=== PATIENT | female | born 1995 | race Caucasian/White ===

== ENCOUNTER 2021-06-14 16:56 | Outpatient (REF) | payer SELFPAY ==
[2021-06-16 15:45] LABS: COVID-19 RT-PCR UVMMC Result Negative (Negative)
== END 2021-06-14 16:57 | disposition home or self-care (01) ==
LOC: LBN 16:56
PROVIDERS: Visit Provider Physician Assistant Medical
DX: J02.9 Acute pharyngitis, unspecified (principal); Z20.822 Contact with and (suspected) exposure to COVID-19
CPT/HCPCS: U0003; 87070

== ENCOUNTER 2022-01-18 16:47 | Outpatient (REF) | payer SELFPAY | END 2022-01-18 16:48 | disposition home or self-care (01) | LOC: LBN 16:47 | PROVIDERS: Visit Provider Nurse Practitioner Family | DX: N39.0 Urinary tract infection, site not specified (principal) | CPT/HCPCS: 87086 ==

== ENCOUNTER 2022-12-07 17:08 | Outpatient (REF) | payer SELFPAY ==
[2022-12-07 22:19] LABS: Bacteria Few HPF (Negative); C & S Indicated? C&S Done As Ordered; Casts Negative LPF (Negative); Crystals Negative HPF (Negative); Epithelial Cells Few HPF (Negative); Mucus Negative (Negative); RBC 0-2 HPF (0-2); WBC 20-50 HPF (0-5)
== END 2022-12-07 17:09 | disposition home or self-care (01) ==
LOC: LBN 17:08
PROVIDERS: Visit Provider Physician Assistant Medical
DX: R30.0 Dysuria (principal)
CPT/HCPCS: 81015; 87086

== ENCOUNTER 2022-12-10 17:34 | Outpatient (REF) | payer SELFPAY ==
[2022-12-12 12:52] LABS: Chlamydia Result Negative (Negative); GC Result Negative (Negative)
== END 2022-12-10 17:35 | disposition home or self-care (01) ==
LOC: LBN 17:34
PROVIDERS: Visit Provider Nurse Practitioner Family
DX: Z11.3 Encounter for screening for infections with a predominantly sexual mode of transmission (principal)
CPT/HCPCS: 87491; 87591

== ENCOUNTER 2023-02-01 19:33 | Outpatient (REF) | payer BC, SELFPAY ==
[2023-02-01 20:55] LABS: Source Nasal/Nares
[2023-02-01 21:45] LABS: COVID-19 PCR Negative (Negative)
== END 2023-02-01 19:34 | disposition home or self-care (01) ==
LOC: LBN 19:33
PROVIDERS: Visit Provider Physician Assistant Medical
DX: J02.9 Acute pharyngitis, unspecified (principal); Z20.822 Contact with and (suspected) exposure to COVID-19
CPT/HCPCS: 87635; 87070

== ENCOUNTER 2024-03-14 00:16 | Emergency (ER) | payer BC, SELFPAY ==
[2024-03-14 00:27] VITALS: BP 178/107; PULSE 117; RESP 16; TEMP 36.7; O2SAT 98
--- NOTE | 2024-03-14 00:30 | DI.CT_ITS ---
Exam(s) CT ABDOMEN PELVIS WO EXAM: CT ABDOMEN PELVIS WO CLINICAL HISTORY: hx of stones, now UTI, r/o stone. TECHNIQUE: Imaging Protocol: Axial computed tomography images with coronal and sagittal reformatted images were created and reviewed. Oral: / no COMPARISON: No exams were available for comparison FINDINGS: Lung Bases: No acute findings. Liver: Normal density. No suspicious mass. Gallbladder and biliary tract: No radiodense calculus or biliary dilation. Pancreas: Normal density. No abnormal calcifications or inflammatory process. Spleen: Normal. Kidneys: Normal size, contour and axis. No radiodense stones. No obstructive uropathy. No suspicious masses seen. Adrenal glands: No masses seen. Lymph nodes: Within normal limits. Vasculature: Abdominal aorta non-dilated. Soft tissues: Unremarkable. Bladder: No wall thickening. No mass or calculi. Bowel: No obstruction or bowel wall thickening. Peritoneal cavity: Trace amount of physiologic fluid in cul-de-sac. No focal collection. No mesente colleen inflammatory response. Reproductive organs: Unremarkable. Bones: Bilateral L4 pars defects and slight spondylolisthesis. Severe degenerative disc changes at L 4-5. Remainder of spine unremarkable. IMPRESSION: No acute abnormality in the abdomen or pelvis. No evidence of urinary tract calculi or hydronephrosis. RADIATION DOSE DELIVERED: Total DLP DATA REPOSITORY: All CT scans at this facility are submitted to the National Radiology Data Registry (NRDR) Dose Index Registry (DIR) with the [employer] (ACR). RADIATION OPTIMIZATION: All CT scans at this facility use at least one of these dose optimization te chniques: automated exposure control; mA and/or kV adjustment per patient size (includes targeted exa ms where dose is matched to clinical indication); or iterative reconstruction.
[2024-03-14 00:31] VITALS: BP 178/107; PULSE 117; RESP 16; TEMP 36.7; O2SAT 98
--- NOTE | 2024-03-14 00:34 | ED.GENADUL_ITS ---
Discharge Plan Disposition Patient Disposition: Home Condition: Good Discharge Details Clinical Impression: UTI (urinary tract infection) Primary Care Provider: Vanita Martinez ED Provider: Glen Max Home Meds and New Rx's Prescriptions: New cephalexin 500 mg capsule 500 mg PO QID 7 Days Qty: 28 0RF Discharge Instructions Instructions: Urinary Tract Infection, Adult ED Additional Instructions: At this time you have evidence of urinary tract infection. Thankfully there is no evidence of a kidney stone or other significant abnormality. You have been given a dose of antibiotics here, and a prescription to your pharmacy on file. Please take this as prescribed and directed. Please drink plenty of fluids and stay well-hydrated. If you notice any worsening of your symptoms, or any new symptoms such as vomiting, diarrhea, fever, chills, shortness of breath, chest pain, numbness, weakness, or fainting , please return immediately to the emergency department for reevaluation. Please follow up with your primary care provider as soon as possible for reassessment and reevaluation. As always, it was a pleasure participating in your medical care today. Referrals: Vanita Martinez [Primary Care Provider] - HPI General Date/Time Provider Initiated Documentation: 03/14/24 00:27 . HPI Narrative: 28-year-old female with a past medical history of sinus tachycardia, previous kidney stones, presents today for evaluation of bilateral flank pain, urinary burning, frequency, and malodorous smell from the urine. Patient states that it started this morning. She did have some old amoxicillin and took 500 mg today right before noon. She denies any vomiting or diarrhea. She describes the pain in her flanks as achy. She admits to seeing blood in her urine, but states that normally she does not have this amount with UTIs. No other complaints at this time. No other modifying factors. Related Data Home Medications ?Medication ?Instructions ?Recorded ?Confirmed cephalexin 500 mg capsule 500 mg PO QID 7 days #28 caps 03/14/24 Previous Rx's ?Medication ?Instructions ?Recorded cephalexin 500 mg capsule 500 mg PO QID 7 days #28 caps 03/14/24 Allergies Allergy/AdvReac Type Severity Reaction Status Date / Time doxycycline Allergy Severe Anaphylaxis Verified 03/14/24 00:34 General Stated Complaint: Urinary LUKAS: 3 Review of Systems All systems reviewed & are unremarkable except as noted in HPI and below Exam Narrative Exam Narrative: 1.Const: Well-nourished, Well-developed, appearing stated age 2.Eyes: PERRL, no conjunctival injection, and symmetrical lids. 3.ENT: Atraumatic external nose and ears. Moist MM. Neck: Symmetric, trachea midline, No thyromegaly. 4.CVS: +S1/S2, No murmurs or gallops. Peripheral pulses 2+ and equal in all extremities. Brisk capillary refill in all extremities. 5.RESP: Unlabored respiratory effort. Clear to auscultation bilaterally. No wheezes rales or rhonchi 6.GI: Soft, nondistended, mild CVA tenderness bilaterally on percussion. No guarding or rebound. No pain at McBurney's point, negative Ag sign. Mild suprapubic achiness. 7.MSK: Normocephalic/Atraumatic, Extremities w/o deformity or ttp No cyanosis or clubbing, Normal movement of all extremities 8.Skin: Warm, Dry. No rashes or lesions. 9.Neuro: wreath machine tender II-XII grossly intact. Sensation grossly intact, no focal neurologic deficits. 10.Psych: (AAO) x3. Appropriate mood and affect Course Vital Signs Vital signs: Vital Signs Temperature 36.7 C 03/14/24 00:27 Pulse 117 H 03/14/24 00:27 Respiratory Rate 16 03/14/24 00:27 Blood Pressure 178/107 H 03/14/24 00:27 Pulse Oximetry 98 03/14/24 00:27 Temperature 36.7 C 03/14/24 00:31 Pulse 117 H 03/14/24 00:31 Respiratory Rate 16 03/14/24 00:31 Respiratory Effort Normal, Non-Labored 03/14/24 00:31 Blood Pressure 178/107 H 03/14/24 00:31 Blood Pressure Position Sitting 03/14/24 00:31 Pulse Oximetry 98 03/14/24 00:31 Oxygen Delivery Method Room Air 03/14/24 00:31 Oxygen Flow Rate 0 03/14/24 00:27 Pain Level 7 03/14/24 00:31 Medical Decision Making 28-year-old female with a past medical history of sinus tachycardia, previous kidney stones, presents today for evaluation of bilateral flank pain, urinary burning, frequency, and malodorous smell from the urine. Patient states that it started this morning. She did have some old amoxicillin and took 500 mg today right before noon. She denies any vomiting or diarrhea. She describes the pain in her flanks as achy. She admits to seeing blood in her urine, but states that normally she does not have this amount with UTIs. No other complaints at this time. No other modifying factors. Exam demonstrates mild bilateral CVA tenderness. No significant guarding or rebound though. Concern for urolithiasis and potential UTI as well. Will get CT scan to rule out stone, we we will rehydrate, give Toradol for pain control, monitor closely and reassess. 4:[address] scan shows no evidence of urolithiasis, laboratory workup shows mildly elevated white count of 13.6, normal lactate, normal electrolytes and normal renal function. Urinalysis shows large blood leuk esterase and RBCs. With the patient's symptomatology, and urinalysis I do suspect urinary tract infection without evidence of urolithiasis. We will give 2 g of ceftriaxone here and a prescription for Keflex for home use. Patient's pain is improved with NSAID therapy. She remained stable and appropriate for discharge at this time. No evidence of hypotension or shock. Patient will be discharged home. Diagnosis urinary tract infection. I have extensively reviewed the treatment plan and discharge instructions with the patient. I have addressed all patient concerns at this time. The patient was made aware of what symptoms to monitor for that would warrant a return to the emergency department. Discussed the plan with the patient, they demonstrate verbal understanding and agreement with our assessment and plan at this time. The documentation in this chart was dictated using [employer] dictation software. Please excuse any dictation errors. FINDINGS: Liver: Normal. No mass. Gallbladder and biliary ducts: Normal. No calcified stones. No ductal dilation. Pancreas: Normal. No ductal dilation. Spleen: Normal. No splenomegaly. Adrenal glands: Normal. No mass. Kidneys and ureters: Normal. No hydronephrosis. Stomach and bowel: No evidence of bowel obstruction. No mucosal thickening. Appendix: Normal appendix. Intraperitoneal space: Trace fluid in the cul-de-sac. No free air. Vasculature: Unremarkable. No abdominal aortic aneurysm. Lymph nodes: Unremarkable. No enlarged lymph nodes. Urinary bladder: Unremarkable as visualized. Reproductive: Unremarkable as visualized. Bones/joints: Pars defects with grade 1 spondylolisthesis and degenerative disc disease at L4-L5. No acute fracture. Soft tissues: Unremarkable. IMPRESSION: No acute findings. Thank you for allowing us to participate in the care of your patient. Dictated and Authenticated by: Rufus Cain MD 03/14/2024 3:47 AM Eastern Time ([place] & [place]) Quality:SDOH Health Related Social Needs: No Data to Display PFSH All Active Problems (Updated 03/14/24 @ 03:58 by Glen Max DO) UTI (urinary tract infection) (Acute) Social History Smoking/Tobacco Use Status: Current every day Smoking risk assessment performed?: Yes Alcohol Intake: current Alcohol Intake frequency: a few times a week Alcohol type: beer Drug use: Occasionally Substance use type: marijuana Housing: apartment Do you feel safe at home: Yes Do you feel safe in your relationship?: Yes Additional Social history: unable to assess privately
[2024-03-14] MEDS: Ketorolac 15 MG/ML VIAL IVP (00:49)
[2024-03-14] MEDS: Lactated Ringers 1,000 ML 1000 ML IV (00:49)
[2024-03-14 00:50] LABS: Abs Immature Grans 0.03 10^3/uL (0.0-0.06); Absolute Basophil Count 0.05 10^3/uL (0.0-0.2); Absolute Eosinophil Count 0.05 10^3/uL (0.0-0.7); Absolute Lymphocyte Count 3.24 10^3/uL (1.2-3.4); Absolute Monocyte Count 0.89 10^3/uL (0.1-0.8); Basophils % 0.4 %; Eosinophils % 0.4 %; HCT 46.1 % (36.0-46.0); HGB 15.2 g/dL (11.2-15.7); Immature Grans % 0.2 %; Lymphocytes % 23.7 %; MCH 31.7 pg (27.0-33.0); MCV 96 fL (80-95); MPV 9.8 fL (8.0-11.0); Monocytes % 6.5 %; Neutrophils % 68.8 %; Platelet Count 342 10^3/uL (130-400); RDW 12.6 % (11.7-14.6); RDW-SD 45.2 fL; WBC 13.66 10^3/uL (4.4-10.8)
[2024-03-14 00:54] LABS: Bilirubin Negative (Negative); Blood Large (Negative); Clarity Sl Cloudy (Clear); Glucose Negative (Negative); Ketones Negative (Negative); Leukocyte Esterase Large (Negative); Nitrite Negative (Negative); Urobilinogen 0.2 mg/dL (Up to 0.2); pH 5.5 (5-8)
[2024-03-14 00:59] LABS: C & S Indicated? C&S Done As Ordered; RBC >50 HPF (0-2)
[2024-03-14 01:07] LABS: ALT 16 U/L (14-59); AST 12 U/L (15-37); Albumin 4.1 g/dL (3.4-5.0); Alkaline Phosphatase 86 U/L (46-116); Anion Gap 10.9 mmol/L (3-11); BUN 8 mg/dL (7-18); CO2 25.1 mmol/L (21.0-32.0); CREATININE 0.9 mg/dL (0.55-1.02); Calcium 9.2 mg/dL (8.5-10.1); Chloride 104 mmol/L (98-107); Estimated GFR 90.42 (mL/min/1.73m2); Glucose 92 mg/dL (74-106); Potassium 3.5 mmol/L (3.5-5.1); Sodium 140 mmol/L (136-145); Total Protein 7.7 g/dL (6.4-8.2)
[2024-03-14] MEDS: ACETAMINOPHEN 1,000 MG/100 ML BTL 400 MG IVPB (03:08)
--- NOTE | 2024-03-14 03:48 | DI.VRAD_ITS ---
PROCEDURE INFORMATION: Exam: CT Abdomen And Pelvis Without Contrast Exam date and time: 03/14/2024 1:03 AM Age: 28 years old Clinical indication: Other: HX of stones, now UTI, R/O stone; Abdominal pain TECHNIQUE: Imaging protocol: Computed tomography of the abdomen and pelvis without contrast. COMPARISON: No relevant prior studies available. FINDINGS: Liver: Normal. No mass. Gallbladder and biliary ducts: Normal. No calcified stones. No ductal dilation. Pancreas: Normal. No ductal dilation. Spleen: Normal. No splenomegaly. Adrenal glands: Normal. No mass. Kidneys and ureters: Normal. No hydronephrosis. Stomach and bowel: No evidence of bowel obstruction. No mucosal thickening. Appendix: Normal appendix. Intraperitoneal space: Trace fluid in the cul-de-sac. No free air. Vasculature: Unremarkable. No abdominal aortic aneurysm. Lymph nodes: Unremarkable. No enlarged lymph nodes. Urinary bladder: Unremarkable as visualized. Reproductive: Unremarkable as visualized. Bones/joints: Pars defects with grade 1 spondylolisthesis and degenerative disc disease at L4-L5. No acute fracture. Soft tissues: Unremarkable. IMPRESSION: No acute findings. Dictated and Authenticated by: Rufus Cain MD. Ordering:VIRGINIA Carroll MD
[2024-03-14] MEDS: cefTRIAXone 2 GM/50 ML BAG IVPB (04:06)
[2024-03-14 04:43] VITALS: BP 95/46; PULSE 85; RESP 20; TEMP 36.8; O2SAT 96
[2024-03-14 04:44] VITALS: BP 95/46; PULSE 85; RESP 20; TEMP 36.8; O2SAT 96
== END 2024-03-14 04:44 | disposition home or self-care (01) ==
PROVIDERS: Emergency Provider Student in an Organized Health Care Education/Training Program; PCP Nurse Practitioner Family
DX: N39.0 Urinary tract infection, site not specified (principal); F17.200 Nicotine dependence, unspecified, uncomplicated; Z87.442 Personal history of urinary calculi
CPT/HCPCS: 36415; 80053; 81025; 87077; 96361; 96365; 96367; 96375; 99285; 74176; 81003; 81015; 83605; 85025; 87086; 87186; 99284; J0131; J0696; J1885